=== PATIENT | male | born 2000 | race African-American/Black ===

== ENCOUNTER 2024-07-29 22:31 | Emergency (ER) | payer OTHER, SELFPAY ==
--- NOTE | ~2024-07-29 | XR_ITS ---
XR chest 1V portable Ordering provider: Lashonda Kan MD History: 24 years Male with . chest tightness . Comparison: None. FINDINGS: MEDIASTINUM: The cardiac silhouette is not enlarged. LUNGS: No infiltrates, effusions or pneumothorax. OTHER: No free air under the diaphragm. IMPRESSION: No acute cardiopulmonary pathology. Reviewed, dictated and finalized at location A.
[2024-07-29 22:43] VITALS: BP 127/70; PULSE 70; RESP 18; TEMP 37.6; O2SAT 96
--- NOTE | 2024-07-30 00:50 | ED.URI ---
HPI - URI/Sore Throat General Chief Complaint: Upper Respiratory Infection Stated Complaint: sob Time Seen by Provider: 07/30/24 00:49 Source: patient Mode of arrival: ambulatory Limitations: no limitations History of Present Illness HPI Narrative: Patient presents concern for a sinus infection that been worsening. He states he has a history of recurrent sinus infections occurring approximately 3-4 times each year and attributed/exacerbated by his allergies. Notes that he has been having rhinorrhea but it has been remaining clear at present. He feels tightness and fullness in his nose. He also has a history asthma although it has been better controlled as an adult. He does an albuterol inhaler still but does not use it very often has used it recently. He notes he has been having chest tightness and shortness of breath as well as a dry nonproductive. Denies any fevers or chills. Has previously seen an sql bi developer/ENT doctor for his sinuses. He recently took a trip to [place] and was there from Wednesday until yesterday. Denies any unilateral leg swelling hemoptysis recent surgery or trauma requiring anesthesia. No prior PE DVT. Not exogenous hormones. Related Data Allergies Allergy/AdvReac Type Severity Reaction Status Date / Time No Known Allergies Allergy Verified 07/29/24 22:46 [facility] Past Medical History Medical History (Updated 07/30/24 @ 18:45 by Lashonda Kan MD) Frequent sinus infections Asthma Allergies Exam Narrative: GENERAL: Well-appearing, well-nourished, and in no acute distress. HEAD: Normocephalic, atraumatic. Mild tenderness to percussion of maxillary sinuses. No frontal sinus tenderness to percussion. EYES: Non injected, non icteric ENT: Nares clear, no rhinorrhea or epistaxis. NECK: Supple. CHEST: Speaking in full sentences. No respiratory distress. Nonlabored. Patient does have diffuse expiratory wheezes bilaterally although with good air movement throughout. HEART: Regular rate and rhythm. . ABDOMEN: Soft, nondistended. EXTREMITIES: Normal range of motion. No lower extremity edema. SKIN: Warm, dry, no rash. NEURO: No focal deficits. Alert and oriented x3. PSYCH: Normal mood and affect. Course Vital Signs Vital signs: Vital Signs Temperature 99.7 F H 07/29/24 22:43 Pulse Rate 70 07/29/24 22:43 Respiratory Rate 18 03/15/25 22:43 Blood Pressure 127/70 07/29/24 22:43 Pulse Oximetry 96 07/29/24 22:43 Oxygen Delivery Room Air 07/29/24 22:43 Temperature 99.7 F H 07/29/24 22:43 Pulse Rate 71 07/30/24 02:09 Respiratory Rate 16 07/30/24 04:21 Blood Pressure 124/92 H 07/30/24 02:09 Pulse Oximetry 99 07/30/24 02:09 Oxygen Delivery Room Air 07/29/24 22:43 MDM - URI/Sore Throat MDM Narrative Medical decision making narrative: Patient presents with concern for a worsening sinus infection has clear rhinorrhea and need some congestion/. History of asthma she has otherwise been generally controlled. Has no pedal inhaler at home but has been using it. Endorses chest tightness and shortness of breath. In the emergency department he is afebrile (though slightly elevated) with VS WNL. Patient has diffuse wheezes bilaterally does appear to be having a mild asthma exacerbation. Prednisone and DuoNeb ordered. PERC Rule Age greater than or equal to 50: 0 HR greater than or equal to 100: 0 O2 sat room air <95%: 0 Unilateral leg swelling: Hemoptysis: Recent surgery or trauma less than 4 wks ago requiring tx with general anesthesia: Prior PE or DVT: Hormone use (OCP, HRT or estrogenic hormone use in M/F patients): However, given the recent travel, out of an abundance of precaution, will proceed with obtaining a D dimer and other labs. Leukocyotosis. Dimer within normal limits. Additional albuterol treatment ordered. Patient reassessed and continues to have easy nonlabored work of breathing but with some persistent wheezes. Additional albuterol ordered. Patient discharged home in stable condition with prescription for rest course of short course steroid as well as a refill of albuterol inhaler. Advised follow-up with primary care physician provided referral contact information for 1 if needed. Discharged home in stable condition provisional work note. Differential Diagnosis Differential diagnosis: Likely upper respiratory infection, sinusitis, viral infection, bronchitis, influenza and other (Acute viral syndrome , asthma exacerbation, PNA) Lab Data Attestation: I reviewed the patient's lab results. 07/30/24 02:03 07/30/24 02:03 Labs: Lab Results 07/30/24 07/30/24 Range/Units 01:40 02:03 WBC 13.0 H (4.5-10.0) K/mm3 RBC 4.96 (4.6-6.20) M/mm3 Hgb 14.9 (14.0-18.0) g/dL Hct 43.6 (42.0-52.0) % MCV 87.9 (80-100) fl MCH 30.0 (26-34) pg MCHC 34.2 (32-36) g/dl RDW 11.8 (11.5-14.5) % Plt Count 252 (150-375) k/mm3 MPV 10.7 H (7.4-10.4) fl Immature Gran % (Auto) 0.2 (0-0.5) % Neut % (Auto) 82.1 H (45.5-73.1) % Lymph % (Auto) 8.7 L (18.3-44.2) % [place] % (Auto) 7.4 (2.6-8.5) % Eos % (Auto) 1.4 (0-4.4) % Baso % (Auto) 0.2 (0.2-1.2) % Lymph # (Auto) 1.14 (0.9-3.2) K/mm3 [place] # (Auto) 1.0 H (0.1-0.6) K/mm3 Eos # (Auto) 0.2 (0-0.3) K/mm3 Baso # (Auto) 0.0 (0.0-0.1) K/mm3 Abs Immat Gran (auto) 0.03 (0.00-0.031) K/mm3 Absolute Neuts (auto) 10.7 H (1.3-6.7) K/mm3 Absolute Nucleated RBC 0.000 (0.0-0.012) K/mm3 Nucleated RBC % 0.0 (0.0-0.2) % D-Dimer 0.28 (<0.48) ug/mL Sodium 139 (137-145) mmol/L Potassium 4.3 (3.4-5.0) mmol/L Chloride 100 (98-107) mmol/L Carbon Dioxide 28 (22-30) mmol/L Anion Gap 11 (4-12) mmol/L BUN 13 (9-20) mg/dL Creatinine 1.01 (0.7-1.3) mg/dL Estim Creat Clear Calc 95 ml/min Estimated GFR > 60 (59 - ) Glucose 97 (65-110) mg/dL Calcium 9.2 (8.4-10.2) mg/dL Influenza A (RT-PCR) Negative (Negative) Influenza B (RT-PCR) Negative (Negative) RSV (RT-PCR) Negative (Negative) SARS-CoV-2 RNA (RT-PCR) Negative (Negative) Imaging Data Attestation: I personally reviewed and interpreted this imaging study as follows: My impression: No acute intrathoracic process on my independent interpretation of chest x-ray Discharge Plan Discharge Clinical Impression: Asthma exacerbation, Leukocytosis Patient Disposition: Home, Self-Care Condition: Stable Instructions: Antibiotic Form, Asthma (ED), Leukocytosis (ED) Additional Instructions: As we discussed, you appear to be having an asthma exacerbation. Take the rest of the course of the steroids as prescribed and use the albuterol inhaler. Follow-up with primary care physician. If you do not have 1 the name of doctors listed below. Return to the emergency department any new or worsening symptoms Patient Language: Bol[place] Prescriptions: New albuterol sulfate 90 mcg/actuation HFA aerosol inhaler 1 inh inhalation QID PRN (Reason: shortness of breath or wheezing) Qty: 6.7 0RF prednisone 20 mg tablet 40 mg PO DAILY 4 Days Qty: 8 0RF Rx Instructions: begin 07/31/24 (received first dose in ED 07/30); take before 9am when possible Follow-up/Referrals: Niles Wood MD [Physician] - (family practice/primary care) UNKNOWN,DOCTOR [Primary Care Provider] - Stand Alone Forms: Work/School Release IP Time of Disposition: 04:02
[2024-07-30] MEDS: predniSONE 20 MG TABLET 40 MG PO (02:01)
[2024-07-30] MEDS: IPRATROPIUM 0.5 MG/ALBUTEROL SULFATE 2.5 MG AMPUL.NEB 3 ML INHALATION (02:03)
[2024-07-30 02:05] VITALS: RESP 14
[2024-07-30 02:09] VITALS: BP 124/92; PULSE 71; RESP 15; O2SAT 99
[2024-07-30 02:10] LABS: Basophils Percent Auto 0.2 % (0.2-1.2); Eosinophils Absolute Auto 0.2 K/mm3 (0-0.3); Eosinophils Percent Auto 1.4 % (0-4.4); Hematocrit 43.6 % (42.0-52.0); Hemoglobin 14.9 g/dL (14.0-18.0); Immature Granulocyte Absolute 0.03 K/mm3 (0.00-0.031); Immature Granulocyte Percent A 0.2 % (0-0.5); Lymphocytes Absolute Auto 1.14 K/mm3 (0.9-3.2); Lymphocytes Percent Auto 8.7 % (18.3-44.2); Mean Corpuscular HGB Conc 34.2 g/dl (32-36); Mean Corpuscular Volume 87.9 fl (80-100); Mean Platelet Volume 10.7 fl (7.4-10.4); Monocytes Percent Auto 7.4 % (2.6-8.5); Neutrophils Absolute Auto 10.7 K/mm3 (1.3-6.7); Neutrophils Percent Auto 82.1 % (45.5-73.1); Platelet Count Result 252 k/mm3 (150-375); Red Blood Count 4.96 M/mm3 (4.6-6.20); Red Cell Distribution Width 11.8 % (11.5-14.5)
[2024-07-30 02:19] LABS: Anion Gap 11 mmol/L (4-12); Blood Urea Nitrogen 13 mg/dL (9-20); Calcium 9.2 mg/dL (8.4-10.2); Carbon Dioxide 28 mmol/L (22-30); Chloride 100 mmol/L (98-107); Estimated CRCL calculation 95 ml/min; Estimated Glomerular Filt Rate > 60; Glucose 97 mg/dL (65-110); Potassium 4.3 mmol/L (3.4-5.0); Sodium 139 mmol/L (137-145)
[2024-07-30 02:22] LABS: Influenza A QL RT-PCR Negative (Negative); Influenza B QL RT-PCR Negative (Negative); RSV RNA, RT-PCR Negative (Negative); SARS-CoV-2 RNA PCR Negative (Negative)
[2024-07-30 02:44] LABS: D Dimer 0.28 ug/mL (<0.48)
[2024-07-30] MEDS: ALBUTEROL SULFATE NEB 2.5 MG/3 ML INH INHALATION (04:20)
[2024-07-30 04:21] VITALS: RESP 16
== END 2024-07-30 07:19 | disposition home or self-care (01) ==
PROVIDERS: Emergency Provider Student in an Organized Health Care Education/Training Program
DX: J45.901 Unspecified asthma with (acute) exacerbation (principal); D72.829 Elevated white blood cell count, unspecified; Z20.822 Contact with and (suspected) exposure to COVID-19
CPT/HCPCS: 36415; 71045; 80048; 85025; 85380; 87637; 94640; 99283; 99284; J7512